=== PATIENT | male | born 1975 | race Caucasian/White ===

== ENCOUNTER 2016-09-10 12:21 | Emergency (ER) | payer SELFPAY ==
[2016-09-10 12:37] VITALS: BP 105/73; PULSE 86; RESP 16; TEMP 98.1; O2SAT 94
--- NOTE | 2016-09-10 13:05 | UCPHY ---
H & P Time Seen by Provider: 09/10/16 12:58 Patient Type: New HPI/ROS: CHIEF COMPLAINT: Sore throat, sinus pressure, chest congestion. HISTORY OF PRESENT ILLNESS: The patient is a 41-year-old male who presents with sore throat, sinus pressure, and chest congestion for 7 days. He admits associated headache and mild productive cough that is not keeping him awake. Sputum is clear. He also reports eye pain with movement of his eyeballs. No vision changes or double vision. He has had recent sick contact with family members. REVIEW OF SYSTEMS: Constitutional: No fever, no chills. Eyes: No diplopia. ENT: As above. Cardiovascular: No chest pain, no palpitations. Respiratory: No cough, no shortness of breath, no wheezing. Musculoskeletal: No back pain. Skin: No rashes. Neurological: No headache. 10 point ROS otherwise negative Past Medical/Surgical History: Chronic allergies. Social History: Nonsmoker. Smoking Status: Never smoked Physical Exam: General Appearance: Alert, no distress. Afebrile. Normal phonation. No respiratory distress. Eyes: Pupils equal and round no pallor or injection. No icterus ENT, Mouth: Mucous membranes moist. Pharynx erythematous without exudate. TM Clear. EOMI intact. Sinuses nontender and not painful if he were to bend over. Neck: No adenopathy. Supple. No JVD. Trachea in midline. Respiratory: There are no retractions, lungs are clear to auscultation. Cardiovascular: Regular rate and rhythm. Skin: Warm and dry, no rashes. Musculoskeletal: No joint swelling. Extremities: No edema. Homans sign negative. No cords. Psychiatric: nl affect Constitutional: Initial Vital Signs Temperature (C) 36.7 C 09/10/16 12:32 Heart Rate 86 09/10/16 12:32 Respiratory Rate 16 09/10/16 12:32 Blood Pressure 105/73 09/10/16 12:32 O2 Sat (%) 94 09/10/16 12:32 O2 Delivery Mode Room Air Allergies/Adverse Reactions: Penicillins Allergy (Unknown, Verified 09/10/16 12:35) Rash Home Medications: Medication Instructions Recorded JASMIN-D 12 HOUR TABLET 09/10/16 Cefpodoxime Proxetil [Vantin] 200 mg PO BID #20 tab 02/18/17 Departure - Departure Disposition: Home, Routine, Self-Care Clinical Impression: Upper respiratory infection Qualifiers: URI type: unspecified viral URI Qualified Code(s): J06.9 - Acute upper respiratory infection, unspecified; B97.89 - Other viral agents as the cause of diseases classified elsewhere Condition: Good Instructions: Upper Respiratory Infection (ED) Additional Instructions: Take the antibiotics if symptoms are not improving or worsen in the next 3-4 days: Vantin Drink plenty of fluids and be sure to get rest. Try Afrin for nasal congestion. Return for any serious worsening of condition. Referrals: NONE *PRIMARY CARE P,. [Primary Care Provider] - As per Instructions Prescriptions: Cefpodoxime Proxetil [Vantin] 200 mg PO BID #20 tab - PQRS PQRS Measurement: Not applicable Report Scribed for: Russ Hernandez Report Scribed by: Saulo Cox Date of Report: 09/10/16 Time of Report: 13:06 Physician Review and Approval Statement: 09/10/16 13:06 Portions of this note were transcribed by a medical scientific liaison. I personally performed a history, physical exam, medical decision making, and confirmed accuracy of information the transcribed note.
== END 2016-09-10 13:39 | disposition home or self-care (01) ==
LOC: CED 12:21
DX: J06.9 Acute upper respiratory infection, unspecified (principal); B97.89 Other viral agents as the cause of diseases classified elsewhere; H57.13 Ocular pain, bilateral
CPT/HCPCS: 87880-PO; G0463-PO